=== PATIENT | male | born 1980 | race Caucasian/White ===

== ENCOUNTER 2018-05-08 01:12 | Emergency (ER) | payer SELFPAY ==
[~2018-05-08] VITALS: Ht 165.1 cm; Wt 76.4 kg
[~2018-05-08 01:12] MED LIST: ALPR0.5T PO; AZIT250T PO; CODE118S PO; HYDR-3498 PO; HYDR28.334 TP; IBUP-1542 PO; MAG355OR15 PO
[2018-05-08 01:16] VITALS: Ht 165.1 cm; Wt 76.4 kg
--- NOTE | 2018-05-08 02:39 | ERD ---
ER Documentation Chief Complaint Chief Complaint left upper toothache x 4 days. on atb HPI The patient he is 37-year-old male presenting to the ER because of left upper tooth pain for the last 4 days, complains of left cheek pain/swollen for 1 day, saw the dentist today who prescribed him Tylenol with codeine antibiotic. He came to the ER because of the pain, denies fever, chills, neck pain, chest pain, abdominal pain, vomiting, dysuria, diarrhea. He, drinks socially, denies illicit drug Past medical history: Anxiety Past surgical history: None ROS All systems reviewed and are negative except as per history of present illness. Medications Home Meds Active Scripts Ibuprofen* (Motrin*) 600 Mg Tab, 600 MG PO Q6H PRN for PAIN AND OR ELEVATED TEMP, #20 TAB Prov:SUYAPA PAULSON MD 05/08/18 Hydrocodone/Acetaminophen ([place] 5-325 Tablet) 1 Each Tablet, 1 TAB PO Q6H PRN for PAIN, #7 TAB Prov:SUYAPA PAULSON MD 05/08/18 Ibuprofen* (Motrin*) 600 Mg Tab, 600 MG PO Q6, #30 TAB Prov:SUYAPA PAULSON MD 05/05/15 Promethazine w/Codeine (Phenergan w/Codeine Syrup) 120 Ml Syrup, 10 ML PO Q6 PRN for COUGH, #120 ML Prov:SUYAPA PAULSON MD 05/05/15 Azithromycin* (Zithromax*) 250 Mg Tablet, 250 MG PO .ZPACK DIRECTED, #6 TAB TAKE 500 MG (2 TABS) THE FIRST DAY THEN 250 MG (1 TAB) DAYS 2-5 Prov:SUYAPA PAULSON MD 05/05/15 Hydrocodone Bit-Acetaminophen* ([place]*) 5-325 Mg Tab, 1 TAB PO Q6 PRN for PAIN, #10 TAB Prov:LUCERO POON PA-C 01/23/15 Alprazolam* (Xanax*) 0.5 Mg Tab, 0.5 MG PO Q8H PRN for ANXIETY, #6 TAB Prov:LUCERO POON PA-C 01/23/15 Hydrocortisone (Hydrocortisone Cr) 28.35 Gm Cr, 28.35 GM TP BID, #60 Prov:LUCERO POON PA-C 10/06/14 Alprazolam* (Xanax*) 0.5 Mg Tab, 0.5 MG PO Q8H PRN for ANXIETY, #6 TAB Prov:LUCERO POON PA-C 10/06/14 Mag Hydrox/Al Hydrox/Simeth (Maalox Max Strength Susp) 769 Ml Oral.susp, 2 TSP PO TID, #12 OZ Prov:SHAWN YUEN MD 09/12/14 Ibuprofen* (Ibuprofen*) 600 Mg Tablet, 600 MG PO Q6 PRN for PAIN, #30 TAB Prov:SHAWN YUEN MD 09/12/14 Reported Medications [none] No Conflict Check 01/15/13 Allergies Allergies: Coded Allergies: No Known Allergy (Unverified , 05/05/15) PMhx/Soc Medical and Surgical Hx: pt denies Medical Hx, pt denies Surgical Hx History of Surgery: No Anesthesia Reaction: No Hx Neurological Disorder: No Hx Respiratory Disorders: No Hx Cardiac Disorders: No Hx Psychiatric Problems: No Hx Miscellaneous Medical Probl: No Hx Alcohol Use: Yes Hx Substance Use: No Hx Tobacco Use: Yes Smoking Status: Light tobacco smoker Physical Exam Vitals Vital Signs Date Temp Pulse Resp B/P (MAP) Pulse Ox O2 O2 Flow FiO2 Time Delivery Rate 05/08/18 98.6 84 15 182/134 100 Room Air 02:35 (150) 05/08/18 83 15 182/134 100 Room Air 02:30 (150) 05/08/18 188/113 02:16 (138) 05/08/18 98.6 90 18 170/100 100 01:16 (123) Physical Exam Const: No acute distress. Head: Atraumatic. Eyes: Normal Conjunctiva. ENT: Normal External Ears, Nose and Mouth. Left upper tooth is tender on tapping with erythematous gum Neck: Full range of motion. No meningismus. Resp: Clear to auscultation bilaterally. Cardio: Regular rate and rhythm. Abd: Soft, non distended, normal bowel sounds, non tender. Skin: No petechiae or rashes. Back: No midline or flank tenderness. Ext: No cyanosis, or edema. Neur: Awake and alert. No focal deficit Psych: Very anxious Results 24 hrs Current Medications Medications Dose Sig/Bishop Start Time Status Last (Trade) Ordered Route PRN Stop Time Admin Dose Reason Admin Morphine 4 mg ONCE STAT 05/08/18 DC 05/08/18 Sulfate IM 02:49 02:58 (morphine) 05/08/18 02:50 Ondansetron 4 mg ONCE STAT 05/08/18 DC 05/08/18 HCl (Zofran ODT 02:49 02:58 Odt) 05/08/18 02:50 Lorazepam 0.5 mg ONCE ONCE 05/08/18 DC 05/08/18 (Ativan) PO 03:00 02:58 05/08/18 03:01 1 mg ONCE STAT 05/08/18 DC Hydromorphone IM 04:19 HCl 05/08/18 04:20 (Dilaudid) Procedures/MDM MEDICAL MAKING DECISION: The patient is a 37-year-old male, presenting with acute dental pain, acute elevated blood pressure most likely due to acute pain. He was treated with morphine 4 mg IM and Dilaudid 1 mg IM for pain and Ativan 0.5 g p.o. for acute anxiety and Zofran ODT for nausea with good response, stable for outpatient follow-up The differential diagnoses considered include but are not limited to dental pain, dental infection, sinusitis, anxiety attack Departure Diagnosis: Primary Impression: Pain, dental Condition: Good Comments He was advised to stop the Tylenol with codeine and was discharged with [place] 5 mg 7 tablets The patient's blood pressure was elevated (>120/80) but appears stable without evidence of hypertension emergency or urgency. The patient was counseled about the risks of hypertension and urged to pursue outpatient monitoring and therapy within a week with their primary care physician. I discussed the findings with the patient. I advised the patient to follow-up with the dentist in the morning for evaluation and intervention Disclaimer: Inadvertent spelling and grammatical errors are likely due to EHR/dictation software use and do not reflect on the overall quality of patient care. Also, please note that the electronic time recorded on this note does not necessarily reflect the actual time of the patient encounter. SUYAPA PAULSON MD May 08, 2018 02:39
[2018-05-08] MEDS ORDERED: ONDANSETRON (ODT) 4 MG TAB ODT STA (02:49)
[2018-05-08] MEDS ORDERED: morphine 4 MG/ML VIAL IM STA (02:49)
[2018-05-08] MEDS ORDERED: LORAZEPAM 0.5 MG TAB PO ONE (03:00)
[2018-05-08] MEDS ORDERED: HYDROmorphONE 0.5 MG/0.5 ML SYG IM STA ×2 (04:19→05:16)
[2018-05-08] MEDS ORDERED: IBUP-1542 PO (04:23)
[2018-05-08] MEDS ORDERED: HYDR-4011 PO (04:23)
[2018-05-08 06:40] VITALS: BP 149/96; PULSE 88; RESP 16
== END 2018-05-08 06:41 | disposition home or self-care (01) ==
LOC: E/R 01:12
DX: K08.89 Other specified disorders of teeth and supporting structures (principal); F17.210 Nicotine dependence, cigarettes, uncomplicated
CPT/HCPCS: 96372; 99284; J1170; J2270